=== PATIENT | male | born 1980 | race Caucasian/White ===

== ENCOUNTER 2018-03-29 17:36 | Emergency (ER) | payer OTHER ==
[~2018-03-29] VITALS: Ht 203.2 cm; Wt 92.9 kg
[~2018-03-29 17:36] MED LIST: ADDE30 PO; CLIN300C10 PO; DIVA-48 PO; HYDR-3498 PO; HYDR-3980 PO; SULF1TAB31 PO
[2018-03-29 17:38] VITALS: BP 131/88; PULSE 107; RESP 18; Ht 203.2 cm; Wt 92.9 kg
[2018-03-29] MEDS ORDERED: CLINDAMYCIN 300 MG CAP PO ONE (18:30)
[2018-03-29] MEDS ORDERED: ACETAMINOPHEN 500 MG TAB PO STA (19:16)
[2018-03-29] MEDS ORDERED: CEPH-443 PO (19:21)
[2018-03-29] MEDS ORDERED: SULF1TAB31 PO (19:21)
[2018-03-29] MEDS ORDERED: GABA100C PO (19:24)
[2018-03-29] MEDS ORDERED: DIVA-48 PO (19:27)
--- NOTE | 2018-03-29 19:30 | ERD ---
ER Documentation Chief Complaint Chief Complaint bilateral leg pain, swelling, discoloration X 1 yr ROS All systems reviewed and are negative except as per history of present illness. Medications Home Meds Active Scripts Divalproex Sodium* (Depakote*) 500 Mg Tablet., 500 MG PO BID for seizure disorder, #30 TAB Prov:TRISTEN RUIZ DO 03/29/18 Gabapentin* (Neurontin*) 100 Mg Capsule, 100 MG PO TID for neuropathy, #30 CAP Prov:TRISTEN RUIZ DO 03/29/18 Cephalexin* (Keflex*) 500 Mg Capsule, 500 MG PO TID for leg infection for 7 Days, #21 CAP Prov:TRISTEN RUIZ DO 03/29/18 Sulfamethoxazole/Trimethoprim* (Bactrim Ds* Tablet) 1 Each Tablet, 1 TAB PO BID for leg infection for 7 Days, #14 TAB Prov:TRISTEN RUIZ DO 03/29/18 Hydrocodone/Acetaminophen (Stow 10-325 Tablet) 1 Each Tablet, 1 TAB PO Q6H PRN for PAIN, #7 TAB Prov:MALILKA SANDS S. 07/18/17 Sulfamethoxazole/Trimethoprim* (Bactrim Ds* Tablet) 1 Each Tablet, 1 TAB PO BID, #14 TAB Prov:ASHLEYMALLIKA BONILLA S. 07/18/17 Clindamycin Hcl* (Clindamycin Hcl*) 300 Mg Capsule, 300 MG PO TID for 10 Days, CAP Prov:MADHUJORDAN CHENEL S. 07/18/17 Divalproex Sodium* (Depakote*) 500 Mg Tablet., 500 MG PO BID for 14 Days, TAB Prov:CHRISTOPHER CANNON MD 03/08/15 Reported Medications Hydrocodone Bit-Acetaminophen* (Stow*) 5-325 Mg Tab, 1 TAB PO Q4H, TAB 08/24/15 Dextroamphetamine-Amphetamine (Adderall) 30 Mg Tab, 30 MG PO DAILY, TAB 08/24/15 Allergies Allergies: Coded Allergies: clonazepam (Verified Allergy, Unknown, 01/21/16) fluoxetine (Verified Allergy, Unknown, 01/21/16) risperidone (Verified Allergy, Unknown, 01/21/16) sertraline (Verified Allergy, Unknown, 01/21/16) PMhx/Soc Medical and Surgical Hx: pt denies Surgical Hx History of Surgery: No Anesthesia Reaction: No Hx Neurological Disorder: Yes (SEIZURES) Hx Respiratory Disorders: No Hx Cardiac Disorders: No Hx Psychiatric Problems: Yes (SCHIZOPHRENIA, BIPOLAR) Hx Miscellaneous Medical Probl: No Hx Alcohol Use: Yes Hx Substance Use: Yes ("medical marijuana") Hx Tobacco Use: Yes (2 PACKS A DAY) Smoking Status: Current every day smoker Physical Exam Vitals Vital Signs Date Temp Pulse Resp B/P (MAP) Pulse Ox O2 O2 Flow FiO2 Time Delivery Rate 03/29/18 96.5 107 18 131/88 98 17:38 (102) Physical Exam Const: No acute distress Head: Atraumatic Eyes: Normal Conjunctiva ENT: Normal External Ears, Nose and Mouth. Neck: Full range of motion. No meningismus. Resp: Clear to auscultation bilaterally Cardio: Regular rate and rhythm, no murmurs Abd: Soft, non tender, non distended. Normal bowel sounds Skin: No petechiae or rashes Back: No midline or flank tenderness Ext: No cyanosis, or edema Neur: Awake and alert Psych: Normal Mood and Affect Results 24 hrs Current Medications Medications Dose Sig/Megan Start Time Status Last (Trade) Ordered Route PRN Stop Time Admin Dose Reason Admin Clindamycin 300 mg ONCE ONCE 03/29/18 DC 03/29/18 HCl PO 18:30 03/29/18 19:14 (Cleocin) 18:31 500 mg ONCE STAT 03/29/18 DC Acetaminophen PO 19:16 03/29/18 (Tylenol 19:19 Tab) Departure Diagnosis: Primary Impression: Leg wound, left Encounter type: initial encounter Qualified Codes: S81.802A - Unspecified open wound, left lower leg, initial encounter Additional Impression: Medication refill Condition: Fair Patient Instructions: Chronic Venous Insufficiency: Treating Ulcers, Cellulitis Referrals: [facility] YOU HAVE RECEIVED A MEDICAL SCREENING EXAM AND THE RESULTS INDICATE THAT YOU DO NOT HAVE A CONDITION THAT REQUIRES URGENT TREATMENT IN THE EMERGENCY DEPARTMENT. FURTHER EVALUATION AND TREATMENT OF YOUR CONDITION CAN WAIT UNTIL YOU ARE SEEN IN YOUR DOCTORS OFFICE WITHIN THE NEXT 1-2 DAYS. IT IS YOUR RESPONSIBILITY TO MAKE AN APPOINTMENT FOR FOLOW-UP CARE. IF YOU HAVE A PRIMARY DOCTOR --you should call your primary doctor and schedule an appointment IF YOU DO NOT HAVE A PRIMARY DOCTOR YOU CAN CALL OUR PHYSICIAN REFERRAL HOTLINE AT IF YOU CAN NOT AFFORD TO SEE A PHYSICIAN YOU CAN CHOSE FROM THE FOLLOWING [facility] [address] [facility]. [facility] [address] [facility] [address] [facility] [address] [facility] [phone] [address] [facility]. [facility] [address] Additional Instructions: Call your primary care doctor TOMORROW for an appointment during the next 1-2 days.See the doctor sooner or return here if your condition worsens before your appointment time. TRISTEN RUIZ DO Mar 29, 2018 19:30
[2018-03-29] MEDS ORDERED: DEXT5TAB17 PO (19:42)
== END 2018-03-29 19:54 | disposition home or self-care (01) ==
LOC: FTE 17:36
DX: S81.802A Unspecified open wound, left lower leg, initial encounter (principal); F17.210 Nicotine dependence, cigarettes, uncomplicated; X58.XXXA Exposure to other specified factors, initial encounter; Y92.9 Unspecified place or not applicable; Z76.0 Encounter for issue of repeat prescription
CPT/HCPCS: Z7502; Z7610; 99283